=== PATIENT | female | born 1945 | race Caucasian/White ===

== ENCOUNTER 2020-12-26 12:24 | Emergency (ER) | payer MEDICARE, OTHER ==
[2020-12-26] MEDS ORDERED: Sodium Chloride 0.9% 10 ML Syringe FLUSH PRN (13:05)
--- NOTE | 2020-12-26 13:40 | CR ---
Chest: Portable view of the chest was obtained. Comparison: No prior chest imaging is available. Heart size is normal. Tortuous thoracic aorta is seen. Several slight areas of parenchymal density are seen raising the possibility of mild COVID pneumonia. Bony structures show slight scoliosis within the spine. Impression: 1. Slight densities within the chest raising the possibility of mild COVID pneumonia. Please correlate. 2. Other findings believed to be incidental as noted above. Diagnostic code #3
--- NOTE | 2020-12-26 13:45 | CT ---
Head CT Technique: Multiple axial sections through the brain were obtained. Intravenous contrast was not utilized. Reconstructed coronal and sagittal images were obtained. Comparison: No prior intracranial imaging is available. Findings: Ventricles along the basal cisterns and sulci over the convexities are mildly prominent. No abnormal parenchymal densities are seen. No evidence of intracranial hemorrhage is seen. No midline shift or mass-effect is seen. Mild mucosal thickening is seen within the sphenoid, maxillary and ethmoid sinuses. Mastoid sinuses show nothing acute. No acute calvarial finding is seen. Impression: 1. Sinus disease which could be chronic or acute. Please correlate with the patient's symptoms. 2. Mild generalized atrophy is seen. 3. No acute intracranial abnormality is seen. Diagnostic code #3
--- NOTE | 2020-12-26 13:53 | EDM.PDOC ---
ED HPI GENERAL MEDICAL PROBLEM - General Chief Complaint: Neuro Symptoms/Deficits Stated Complaint: POSS MINI STROKES AND COVID POSS Time Seen by Provider: 12/26/20 12:39 Source of Information: Reports: Patient History Limitations: Reports: No Limitations - History of Present Illness INITIAL COMMENTS - FREE TEXT/NARRATIVE: 75-year-old female presents to the emergency department accompanied by her sister. Per the patient's sister report she states that patient was not feeling well for the past couple of days and was tested for Covid however has not received results yet. States that she seemed extremely confused approximately 2 days ago and was not aware of the date. Confusion seems to have resolved today. She is awake alert and oriented x3. However she states she does not recall the past 2 days. She has had a cough and has not had much of an appetite. She denies any recent fever or chills. Denies nausea, vomiting or diarrhea. Does have a history of NV however it has not had any stents placed and she states she has history of CVA in the past. - Related Data Allergies Allergy/AdvReac Type Severity Reaction Status Date / Time No Known Allergies Allergy Verified 12/26/20 12:47 Home Meds: Home Meds Aspirin [Aspirin EC] 81 mg PO DAILY 12/26/20 [History] Hydrochlorothiazide/Lisinopril [Lisinopril/HCTZ 10-12.5 MG] 1 tab PO DAILY 12/26/20 [History] atorvaSTATin [Lipitor] 20 mg PO DAILY 12/26/20 [History] Past Medical History Cardiovascular History: Reports: High Cholesterol, Hypertension Psychiatric History: Reports: None Oncologic (Cancer) History: Reports: Breast Other Oncologic History: breast cancer in 2013 - Past Surgical History Oncologic Surgical History: Reports: Mastectomy Social & Family History - Tobacco Use Tobacco Use Status *Q: Never Tobacco User Second Hand Smoke Exposure: No - Recreational Drug Use Recreational Drug Use: No ED ROS GENERAL - Review of Systems Review Of Systems: Comprehensive ROS is negative, except as noted in HPI. ED EXAM, GENERAL - Physical Exam Exam: See Below Exam Limited By: No Limitations General Appearance: Alert, WD/WN, No Apparent Distress Ears: Normal External Exam, Hearing Grossly Normal Nose: Normal Inspection Throat/Mouth: Normal Inspection, Normal Lips, Normal Voice, No Airway Compromise Head: Atraumatic Neck: Normal Inspection, Supple Respiratory/Chest: No Respiratory Distress, No Accessory Muscle Use, Chest Non- Tender, Crackles (L) Cardiovascular: Normal Peripheral Pulses, Regular Rate, Rhythm, No Edema, No Murmur Peripheral Pulses: 2+: Radial (L), Radial (R), Dorsalis Pedis (L), Dorsalis Pedis (R) GI/Abdominal: Normal Bowel Sounds, Soft, Non-Tender, No Distention (Female) Exam: Deferred Rectal (Female) Exam: Deferred Back Exam: Normal Inspection Extremities: Normal Inspection Neurological: Alert, Oriented, CN II-XII Intact, Normal Cognition Psychiatric: Normal Affect, Normal Mood Skin Exam: Warm, Dry, Intact, Normal Color, No Rash Lymphatic: No Adenopathy #1 Interpretation EKG Date: 12/26/20 Time: 13:41 Rhythm: NSR Rate (Beats/Min): 72 [place]: Normal P-Wave: Present QRS: Normal ST-T: Normal QT: Normal EKG Interpretation Comments: Per Dr. Redd interpretation: Sinus rhythm at 72 bpm; left atrial enlargement; low voltage, extremity and precordial leads Course - Vital Signs Text/Narrative:: As stated above, patient presents with 3-day history of increased confusion, shortness of breath and cough. Physical exam is essentially unremarkable however patient does have some fine crackles noted bilaterally. Full neuro exam is unremarkable. She is hemodynamically stable with O2 saturations in the upper 90s. She is afebrile. Will obtain a head CT without contrast to rule out CVA, chest x-ray, lab studies to include a CBC, CMP, magnesium, D-dimer and a C-reactive protein. Also obtain a Covid swab on the patient. Last Recorded V/S: Last Vital Signs Temp 97.0 F 12/26/20 12:42 Pulse 71 12/26/20 16:00 Resp 22 H 12/26/20 16:00 BP 108/64 12/26/20 16:00 Pulse Ox 94 L 12/26/20 16:00 - Orders/Labs/Meds Orders: Active Orders 24 hr Category Date Time Status Vital Signs [RC] Q15M Care 12/26/20 14:37 Active UA RFX SELVIN AND CULT IF INDIC [URIN] Stat Lab 12/26/20 13:06 Ordered Bamlanivimab 700 mg Med 12/26/20 15:30 Active Etesevimab [Etesevimab (EUA)] 1,400 mg Sodium Chloride 0.9% [Normal Saline] 100 ml IV ONETIME EPINEPHrine [Adrenalin] Med 12/26/20 14:36 Active 0.3 mg IM ASDIRECTED PRN Famotidine [Pepcid] Med 12/26/20 14:36 Active 20 mg IVPUSH ASDIRECTED PRN Sodium Chloride 0.9% [Saline Flush] Med 12/26/20 13:05 Active 10 ml FLUSH ASDIRECTED PRN Sodium Chloride 0.9% [Saline Flush] Med 12/26/20 14:45 Active 30 ml FLUSH ASDIRECTED diphenhydrAMINE [Benadryl] Med 12/26/20 14:36 Active 50 mg IVPUSH ASDIRECTED PRN methylPREDNISolone Sod Succ [Solu-MEDROL] Med 12/26/20 14:36 Active 125 mg IVPUSH ASDIRECTED PRN Saline Lock Insert [OM.PC] Stat Oth 12/26/20 13:05 Ordered Medication Orders Diphenhydramine HCl (Diphenhydramine 50 Mg/Ml Sdv) 50 mg IVPUSH ASDIRECTED PRN PRN Reason: hypersensitivity reaction Epinephrine HCl (Epinephrine 1 Mg/Ml Sdv) 0.3 mg IM ASDIRECTED PRN PRN Reason: hypersensitivity reaction Famotidine (Famotidine 20 Mg/2 Ml Sdv) 20 mg IVPUSH ASDIRECTED PRN PRN Reason: hypersensitivity reaction Bamlanivimab 700 mg/Etesevimab 1,400 mg/ Sodium Chloride 160 mls @ 310 mls/hr IV ONETIME ARTIE Last Admin: 12/26/20 15:30 Dose: 310 mls/hr Documented by: FOSTCHR Methylprednisolone Sodium Succinate (Methylprednisolone Sodium Succinate 125 Mg/2 Ml Sdv) 125 mg IVPUSH ASDIRECTED PRN PRN Reason: hypersensitivity reaction Sodium Chloride (Sodium Chloride 0.9% 10 Ml Syringe) 10 ml FLUSH ASDIRECTED PRN PRN Reason: Keep Vein Open Last Admin: 12/26/20 13:38 Dose: 10 ml Documented by: FOSTCHR Sodium Chloride (Sodium Chloride 0.9% 10 Ml Syringe) 30 ml FLUSH ASDIRECTED ARTIE Labs: Laboratory Tests 12/26/20 12/26/20 12/26/20 Range/Units 12:51 13:16 13:16 WBC 3.58 L (3.98-10.04) K/mm3 RBC 4.49 (3.98-5.22) M/mm3 Hgb 13.8 (11.2-15.7) gm/dl Hct 39.3 (34.1-44.9) % MCV 87.5 (79.4-94.8) fl MCH 30.7 (25.6-32.2) pg MCHC 35.1 (32.2-35.5) g/dl RDW Std Deviation 40.3 (36.4-46.3) fL Plt Count 173 L (182-369) K/mm3 MPV 9.8 (9.4-12.3) fl Neut % (Auto) 59.2 (34.0-71.1) % Lymph % (Auto) 31.3 (19.3-51.7) % [place] % (Auto) 9.2 (4.7-12.5) % Eos % (Auto) 0 L (0.7-5.8) Baso % (Auto) 0.3 (0.1-1.2) % Neut # (Auto) 2.12 (1.56-6.13) K/mm3 Lymph # (Auto) 1.12 L (1.18-3.74) K/mm3 [place] # (Auto) 0.33 (0.24-0.36) K/mm3 Eos # (Auto) 0.00 L (0.04-0.36) K/mm3 Baso # (Auto) 0.01 (0.01-0.08) K/mm3 Manual Slide Review Abnormal smear D-Dimer, Quantitative 1.22 H (0.19-0.50) mg/L Sodium (136-145) mEq/L Potassium (3.5-5.1) mEq/L Chloride (98-107) mEq/L Carbon Dioxide (21-32) mEq/L Anion Gap (5-15) BUN (7-18) mg/dL Creatinine (0.55-1.02) mg/dL Est Cr Clr Drug Dosing mL/min Estimated GFR (MDRD) (>60) mL/min BUN/Creatinine Ratio (14-18) Glucose (70-99) mg/dL Calcium (8.5-10.1) mg/dL Magnesium (1.8-2.4) mg/dL Total Bilirubin (0.2-1.0) mg/dL AST (15-37) U/L ALT (14-59) U/L Alkaline Phosphatase (46-116) U/L Troponin I (0.00-0.056) ng/mL C-Reactive Protein (<1.0) mg/dL NT-Pro-B Natriuret Pep (0-450) pg/mL Total Protein (6.4-8.2) g/dl Albumin (3.4-5.0) g/dl Globulin gm/dL Albumin/Globulin Ratio (1-2) SARS-CoV-2 RNA (JUNIOR) Positive H (NEGATIVE) 12/26/20 12/26/20 Range/Units 13:16 13:16 WBC (3.98-10.04) K/mm3 RBC (3.98-5.22) M/mm3 Hgb (11.2-15.7) gm/dl Hct (34.1-44.9) % MCV (79.4-94.8) fl MCH (25.6-32.2) pg MCHC (32.2-35.5) g/dl RDW Std Deviation (36.4-46.3) fL Plt Count (182-369) K/mm3 MPV (9.4-12.3) fl Neut % (Auto) (34.0-71.1) % Lymph % (Auto) (19.3-51.7) % [place] % (Auto) (4.7-12.5) % Eos % (Auto) (0.7-5.8) Baso % (Auto) (0.1-1.2) % Neut # (Auto) (1.56-6.13) K/mm3 Lymph # (Auto) (1.18-3.74) K/mm3 [place] # (Auto) (0.24-0.36) K/mm3 Eos # (Auto) (0.04-0.36) K/mm3 Baso # (Auto) (0.01-0.08) K/mm3 Manual Slide Review D-Dimer, Quantitative (0.19-0.50) mg/L Sodium 129 L (136-145) mEq/L Potassium 3.7 (3.5-5.1) mEq/L Chloride 94 L (98-107) mEq/L Carbon Dioxide 25 (21-32) mEq/L Anion Gap 13.7 (5-15) BUN 27 H (7-18) mg/dL Creatinine 1.5 H (0.55-1.02) mg/dL Est Cr Clr Drug Dosing 24.84 mL/min Estimated GFR (MDRD) 34 (>60) mL/min BUN/Creatinine Ratio 18.0 (14-18) Glucose 124 H (70-99) mg/dL Calcium 8.2 L (8.5-10.1) mg/dL Magnesium 2.4 (1.8-2.4) mg/dL Total Bilirubin 0.7 (0.2-1.0) mg/dL AST 69 H (15-37) U/L ALT 48 (14-59) U/L Alkaline Phosphatase 27 L (46-116) U/L Troponin I < 0.017 (0.00-0.056) ng/mL C-Reactive Protein 0.9 (<1.0) mg/dL NT-Pro-B Natriuret Pep 83 (0-450) pg/mL Total Protein 6.8 (6.4-8.2) g/dl Albumin 3.2 L (3.4-5.0) g/dl Globulin 3.6 gm/dL Albumin/Globulin Ratio 0.9 L (1-2) SARS-CoV-2 RNA (JUNIOR) (NEGATIVE) Meds: Medications Generic Name Dose Route Start Last Admin Trade Name Freq PRN Reason Stop Dose Admin Diphenhydramine HCl 50 mg 12/26/20 14:36 Diphenhydramine 50 Mg/Ml Sdv IVPUSH ASDIRECTED PRN hypersensitivity reaction Epinephrine HCl 0.3 mg 12/26/20 14:36 Epinephrine 1 Mg/Ml Sdv IM ASDIRECTED PRN hypersensitivity reaction Famotidine 20 mg 12/26/20 14:36 Famotidine 20 Mg/2 Ml Sdv IVPUSH ASDIRECTED PRN hypersensitivity reaction Bamlanivimab 700 mg/ 160 mls @ 310 mls/hr 12/26/20 15:30 12/26/20 15:30 Etesevimab 1,400 mg/ Sodium IV 310 mls/hr Chloride ONETIME ARTIE Administration Methylprednisolone Sodium Succinate 125 mg 12/26/20 14:36 Methylprednisolone Sodium Succinate 125 Mg/2 Ml Sdv IVPUSH ASDIRECTED PRN hypersensitivity reaction Sodium Chloride 10 ml 12/26/20 13:05 12/26/20 13:38 Sodium Chloride 0.9% 10 Ml Syringe FLUSH 10 ml ASDIRECTED PRN Administration Keep Vein Open Sodium Chloride 30 ml 12/26/20 14:45 Sodium Chloride 0.9% 10 Ml Syringe FLUSH ASDIRECTED ARTIE Discontinued Medications Generic Name Dose Route Start Last Admin Trade Name Freq PRN Reason Stop Dose Admin Sodium Chloride 1,000 mls @ 999 mls/hr 12/26/20 14:36 12/26/20 15:05 Normal Saline IV 12/26/20 15:36 999 mls/hr ONETIME ONE Administration - Re-Assessments/Exams Free Text/Narrative Re-Assessment/Exam: 12/26/20 13:48 Radiologist impression portable view of the chest: Heart size is normal. Tortuous thoracic aorta is seen. Several slight areas of parenchymal density are seen raising the possibility of mild Covid pneumonia. Bony structures show slight scoliosis within the spine. Impression: 1. Densities within the chest raising the possibility of mild Covid pneumonia. Please correlate. 2. Other findings believed to be incidental as noted above. Radiologist impression CT of the head without contrast: Ventricles along with basal cisterns and sulci over the convexities are mildly prominent. No abnormal parenchymal densities are seen. No evidence of intracranial hemorrhage is seen. No midline shift or mass-effect is seen. Mild mucosal thickening is seen within the sphenoid, maxillary and ethmoid sinuses. Mastoid sinuses show nothing acute. No acute calvarial finding is seen. Impression: 1. Sinus disease which could be chronic or acute. Please correlate with the patient's symptoms. 2. Mild generalized atrophy is seen. 3. No acute intracranial abnormality is seen. 12/26/20 14:35 Hematology is essentially unremarkable D-dimer 1.22, chemistry reveals a sodium of 129, potassium 3.7, chloride 194, BUN 27, creatinine 1.5, GFR 34, glucose 124, magnesium 2.4, troponin less than 0.017, C-reactive protein 0.9, Patient is Covid positive Although D-dimer is elevated she is positive for Covid so suspect this is likely the cause of the elevation. I do not feel it is warranted at this time to do a CT of her lungs. We will give the patient 1000 mL of normal saline due to the fact that her sodium is low likely due to losses from decreased oral intake. I spoke with the patient to provide information about Bamlanivimad for herself. I offered her the fax sheet for patients and caregivers for Bamlanivimad to read and review. I stated the therapy has been approved by an emergency use authorization process and has not fully been FDA reviewed or approved. I shared the potential risks from the therapy including risks/adverse reactions. I discussed there are other potential treatment options that are currently not FDA approved to treat COVID-19. Offered opportunity ask questions and all questions were answered. Patient voiced understanding and agreed to proceed with treatment for herself. 12/26/20 18:02 Patient did receive antibody infusion. Tolerated very well and was monitored for 1 hour after infusion. She will be discharged home and will need to isolate for 10 days from the onset of her symptoms. She will need to follow-up with her primary care provider once she is off isolation precautions. Departure - Departure Time of Disposition: 18:02 Disposition: Home, Self-Care 01 Condition: Good Clinical Impression: COVID-19 - Discharge Information Referrals: Mason Simpson MD [Primary Care Provider] - Forms: ED Department Discharge Additional Instructions: You were seen in the emergency department today and evaluated and found to have Covid. Lab studies were completed and you did receive monoclonal antibodies. Again, this was given to reduce the severity and length of time you have the symptoms of Covid. You will need to isolate yourself for 10 days total from the first day of your onset of symptoms. Recommend drinking electrolyte replacements such as Gatorade or Powerade. Eat small frequent meals. Take Tylenol 650 mg every 4 hours as needed for pain or fever. Follow-up with your primary care provider as soon as your 10 days of isolation has completed. Sepsis Event Note (ED) - Evaluation Sepsis Screening Result: No Definite Risk - Focused Exam Vital Signs: Vital Signs Temp Pulse Resp BP Pulse Ox 12/26/20 16:00 71 22 H 108/64 94 L 12/26/20 12:42 97.0 F 75 16 124/61 96 - My Orders Last 24 Hours: My Active Orders 12/26/20 13:05 Sodium Chloride 0.9% [Saline Flush] 10 ml FLUSH ASDIRECTED PRN Saline Lock Insert [OM.PC] Stat 12/26/20 13:06 UA RFX SELVIN AND CULT IF INDIC [URIN] Stat 12/26/20 14:36 EPINEPHrine [Adrenalin] 0.3 mg IM ASDIRECTED PRN Famotidine [Pepcid] 20 mg IVPUSH ASDIRECTED PRN diphenhydrAMINE [Benadryl] 50 mg IVPUSH ASDIRECTED PRN methylPREDNISolone Sod Succ [Solu-MEDROL] 125 mg IVPUSH ASDIRECTED PRN 12/26/20 14:37 Vital Signs [RC] Q15M 12/26/20 14:45 Sodium Chloride 0.9% [Saline Flush] 30 ml FLUSH ASDIRECTED 12/26/20 15:30 Bamlanivimab 700 mg Etesevimab [Etesevimab (EUA)] 1,400 mg Sodium Chloride 0.9% [Normal Saline] 100 ml IV ONETIME - Assessment/Plan Last 24 Hours: My Active Orders 12/26/20 13:05 Sodium Chloride 0.9% [Saline Flush] 10 ml FLUSH ASDIRECTED PRN Saline Lock Insert [OM.PC] Stat 12/26/20 13:06 UA RFX SELVIN AND CULT IF INDIC [URIN] Stat 12/26/20 14:36 EPINEPHrine [Adrenalin] 0.3 mg IM ASDIRECTED PRN Famotidine [Pepcid] 20 mg IVPUSH ASDIRECTED PRN diphenhydrAMINE [Benadryl] 50 mg IVPUSH ASDIRECTED PRN methylPREDNISolone Sod Succ [Solu-MEDROL] 125 mg IVPUSH ASDIRECTED PRN 12/26/20 14:37 Vital Signs [RC] Q15M 12/26/20 14:45 Sodium Chloride 0.9% [Saline Flush] 30 ml FLUSH ASDIRECTED 12/26/20 15:30 Bamlanivimab 700 mg Etesevimab [Etesevimab (EUA)] 1,400 mg Sodium Chloride 0.9% [Normal Saline] 100 ml IV ONETIME
[2020-12-26] MEDS ORDERED: diphenhydrAMINE 50 MG/ML SDV IVPUSH PRN (14:36)
[2020-12-26] MEDS ORDERED: Sodium Chloride 0.9% 1,000 ML IV ONE (14:36)
[2020-12-26] MEDS ORDERED: methylPREDNISolone Sodium Succinate 125 MG/2 ML SDV IVPUSH PRN (14:36)
[2020-12-26] MEDS ORDERED: EPINEPHrine 1 MG/ML SDV IM PRN (14:36)
[2020-12-26] MEDS ORDERED: Famotidine 20 MG/2 ML SDV IVPUSH PRN (14:36)
[2020-12-26] MEDS ORDERED: Bamlanivimab 700 MG, ETESEVIMAB 1,400 MG in Sodium Chloride 0.9% 100 ML IV ONE (14:36)
[2020-12-26] MEDS ORDERED: Sodium Chloride 0.9% 10 ML Syringe FLUSH SCH (14:45)
[2020-12-26] MEDS ORDERED: Bamlanivimab 700 MG, ETESEVIMAB 1,400 MG in Sodium Chloride 0.9% 100 ML IV SCH (15:30)
== END 2020-12-26 18:37 | disposition home or self-care (01) ==
LOC: JD.ED 12:24
DX: U07.1 COVID-19 (principal); R79.1 Abnormal coagulation profile; E78.00 Pure hypercholesterolemia, unspecified; I10 Essential (primary) hypertension; Z86.73 Personal history of transient ischemic attack (TIA), and cerebral infarction without residual deficits; Z79.82 Long term (current) use of aspirin; Z79.899 Other long term (current) drug therapy; R06.02 Shortness of breath
CPT/HCPCS: 36415; 70450; 70450-26; 71045; 71045-26; 80053; 83735; 83880; 84484; 85025; 85379; 86140; 93005; 93010; 99284-25; 99285; J7030; M0245; Q0245; U0002

== ENCOUNTER 2022-04-16 14:15 | Inpatient (IN) | payer MEDICARE, OTHER ==
[2022-04-16 15:17] LABS: CORONAVIRUS COVID-19 NAA NEGATIVE (NEGATIVE)
[2022-04-16] MEDS ORDERED: Furosemide 40 MG Tab PO ONE (16:46)
[2022-04-16] MEDS ORDERED: Potassium Chloride 20 MEQ Tab.ER PO ONE (16:46)
[2022-04-16] MEDS ORDERED: Sodium Chloride 0.9% 1,000 ML IV ONE (17:21)
[2022-04-16] MEDS: Iopamidol 755 MG/ML 50 ML Bottle IVPUSH ONE ×2 (17:44→17:45)
[2022-04-16] MEDS ORDERED: Sodium Chloride 0.9% 100 ML IV SCH (17:45)
[2022-04-16] MEDS ORDERED: Heparin Sodium 5,000 Units/ML Vial IVPUSH ONE (18:05)
[2022-04-16] MEDS: Heparin Sodium/D5W 25,000 UNITS/500 ML BAG IV SCH (18:44)
[2022-04-16] MEDS ORDERED: Acetaminophen 325 MG Tab PO PRN (20:38)
[2022-04-16] MEDS ORDERED: oxyCODONE 5 MG Tab PO PRN (20:38)
[2022-04-16] MEDS ORDERED: Ondansetron 4 MG/2 ML SDV IV PRN (20:38)
[2022-04-17] MEDS: atorvaSTATin 20 MG Tab PO SCH (09:52)
[2022-04-17] MEDS ORDERED: FLU Vacc QS2022(65UP)/MF59C/PF 60 MCG/0.5 ML Syringe IM ONE (14:30)
[2022-04-17] MEDS: SUPER COLON CLEANSE PO SCH (20:20)
[2022-04-17] MEDS: Heparin Sodium/D5W 25,000 UNITS/500 ML BAG IV SCH (20:21)
[2022-04-18] MEDS ORDERED: Apixaban 5 MG Tab PO SCH (09:00)
[2022-04-18] MEDS: SUPER COLON CLEANSE PO SCH ×2 (09:21→09:23)
[2022-04-18] MEDS: atorvaSTATin 20 MG Tab PO SCH (09:21)
== END 2022-04-18 13:45 | disposition home or self-care (01) | DRG 176 ==
LOC: JD.ED 14:15 → JD.MS 20:34
PROVIDERS: ADMIT Internal Medicine; ATTEND Internal Medicine
DX: I26.99 Other pulmonary embolism without acute cor pulmonale (principal); Z20.822 Contact with and (suspected) exposure to COVID-19; E78.5 Hyperlipidemia, unspecified; I10 Essential (primary) hypertension; E78.00 Pure hypercholesterolemia, unspecified; Z79.82 Long term (current) use of aspirin; Z85.3 Personal history of malignant neoplasm of breast; Z79.899 Other long term (current) drug therapy; Z86.73 Personal history of transient ischemic attack (TIA), and cerebral infarction without residual deficits; Z86.16 Personal history of COVID-19; Z23 Encounter for immunization
CPT/HCPCS: 0241U; 36415; 71045; 71045-26; 71275; 71275-26; 80048; 80053; 83880; 84484; 85025; 85027; 85379; 85730; 86140; 90694; 93005; 93010; 93307; 99285; A9270-GY; J1644; J3490; J7030; Q9967

== ENCOUNTER 2023-12-29 18:34 | Emergency (ER) | payer MEDICARE, OTHER ==
[2023-12-29] MEDS ORDERED: Sodium Chloride 0.9% 10 ML Syringe FLUSH PRN (19:14)
[2023-12-29 19:21] LABS: BASOPHILS PERCENT AUTO 0.5 % (0.0-1.0); EOSINOPHILS ABSOLUTE AUTO 0.2 K/mm3 (0.0-0.4); EOSINOPHILS PERCENT AUTO 2.8 % (0.0-6.0); HEMATOCRIT 38.5 % (37.0-47.0); HEMOGLOBIN 13.6 gm/dl (12.0-16.0); IMMATURE GRAN ABSOLUTE AUTO 0.02 K/mm3 (0.00-0.05); IMMATURE GRAN PERCENT AUTO 0.3 % (0.0-0.4); LYMPHOCYTES ABSOLUTE AUTO 2.6 K/mm3 (1.0-4.8); LYMPHOCYTES PERCENT AUTO 33.1 % (24.0-44.0); MEAN CORPUSCULAR HEMOGLOBIN 31.1 pg (28.0-32.0); MEAN CORPUSCULAR HGB CONC 35.3 g/dl (32.0-36.0); MEAN CORPUSCULAR VOLUME 88.1 fl (83.0-99.0); MEAN PLATELET VOLUME 9.8 fl (9.4-12.3); MONOCYTES ABSOLUTE AUTO 0.7 K/mm3 (0.0-0.8); MONOCYTES PERCENT AUTO 8.3 % (0.0-8.0); NEUTROPHILS ABSOLUTE AUTO 4.3 K/mm3 (1.8-7.7); PLATELET COUNT,PLT 265 K/mm3 (150-400); RED BLOOD CELL COUNT 4.37 M/mm3 (4.10-5.30); WHITE BLOOD CELL COUNT,WBC 7.83 K/mm3 (3.9-11.3)
[2023-12-29 19:38] LABS: A/G RATIO 0.9 (1-2); ALANINE AMINOTRANSFERASE,ALT 31 U/L (14-59); ALBUMIN 3.3 g/dl (3.4-5.0); ALKALINE PHOSPHATASE 44 U/L (46-116); ANION GAP 16.1 (5-15); ASPARTATE AMNIOTRANSFERASE,AST 18 U/L (15-37); BILIRUBIN TOTAL 0.8 mg/dL (0.2-1.0); BLOOD UREA NITROGEN,BUN 18 mg/dL (7-18); CARBON DIOXIDE,CO2 24 mEq/L (21-32); CHLORIDE,CL 103 mEq/L (98-107); CREATININE 1.2 mg/dL (0.55-1.02); EST CRCL DRUG DOSING (CG) 29.57 mL/min; ESTIMATED GFR 46 mL/min (>60); GLUCOSE RANDOM 168 mg/dL (70-99); POTASSIUM,K 3.1 mEq/L (3.5-5.1); PROTEIN TOTAL,TP 6.8 g/dl (6.4-8.2); SODIUM,NA 140 mEq/L (136-145)
[2023-12-29 19:45] LABS: INR 1.61; PROTHROMBIN TIME 16.5 SECONDS (9.7-12.0)
[2023-12-29] MEDS: fentaNYL 100 MCG/2 ML SDV IVPUSH ONE ×2 (19:51→21:30)
[2023-12-29 19:52] LABS: TROPONIN I HIGH SENSITIVITY < 4 pg/mL (<=51)
[2023-12-29 20:32] LABS: APPEARANCE,URINE CLOUDY (Clear); BILIRUBIN,URINE NEGATIVE (Negative); COLOR,URINE YELLOW (Yellow); GLUCOSE,URINE NEGATIVE (Negative); KETONES,URINE NEGATIVE (Negative); LEUKOCYTE ESTERASE,URINE 2+ (Negative); NITRITE,URINE NEGATIVE (Negative); OCCULT BLOOD,URINE TRACE-LYSED (Negative); PH,URINE 5.5 (5.0-8.0); PROTEIN,URINE TRACE (Negative); UROBILINOGEN,URINE 0.2 (0.2-1.0)
[2023-12-29 20:39] LABS: BACTERIA,URINE MODERATE /hpf (FEW); WBC,URINE 40-50 /hpf (0-5)
[2023-12-29 20:40] LABS: MUCUS,URINE MODERATE /hpf (FEW)
[2023-12-29] MEDS: cefTRIAXone 1 GM in Sodium Chloride 0.9% 50 ML IV ONE (21:37)
[2023-12-29] MEDS: Morphine 4 MG/ML Syringe IVPUSH ONE (22:46)
[2023-12-29] MEDS: Potassium Chloride 20 MEQ Tab.ER PO ONE (22:49)
[2023-12-29] MEDS: Sodium Chloride 0.9% 500 ML IV ONE (22:56)
[2023-12-29] MEDS: Ondansetron 4 MG/2 ML SDV IVPUSH ONE (22:57)
[2023-12-29] MEDS: Sodium Chloride 0.9% 100 ML IV SCH (23:41)
[2023-12-29] MEDS: Iopamidol 755 Mg/ML 100 ML Bottle IVPUSH ONE (23:41)
== END 2023-12-30 02:28 | disposition home or self-care (01) ==
LOC: JD.ED 18:34
DX: R07.9 Chest pain, unspecified (principal); N39.0 Urinary tract infection, site not specified; Z79.01 Long term (current) use of anticoagulants; I10 Essential (primary) hypertension; Z79.899 Other long term (current) drug therapy; Z86.16 Personal history of COVID-19
CPT/HCPCS: 36415; 71045; 71275; 74175; 76705; 80053; 81001; 83690; 84484; 85025; 85610; 87086; 87088; 87186; 93005; 96361; 96365; 96375; 96376; 99285; A9270; J0696; J2270; J2405; J3010; J3490; J7030; Q9967; 93010; 99284

== ENCOUNTER 2024-02-12 10:45 | Day surgery (SDC) | payer MEDICARE, OTHER ==
[~2024-02-12 10:45] MED LIST: Dexamethasone 4 MG/ML 5 ML MDV ONE; HYDROmorphone 0.5 MG/0.5 ML Syringe IVPUSH PRN; Lidocaine 1% 5 ML VIAL ONE; Midazolam 1 MG/ML 2 ML SDV ONE; Ondansetron 4 MG/2 ML SDV IVPUSH PRN; Ondansetron 4 MG/2 ML SDV ONE; Propofol 200 MG/20 ML SDV ONE; Rocuronium 50 MG/5 ML Vial ONE; Sodium Chloride 0.9% 10 ML Syringe FLUSH PRN; Sodium Chloride 0.9% 10 ML Syringe FLUSH SCH; ceFAZolin 2 GM Vial ONE; fentaNYL 100 MCG/2 ML SDV ONE
[2024-02-12] MEDS: Lactated Ringers 1,000 ML IV SCH (11:15)
[2024-02-12] MEDS: EPINEPHrine 1 MG/ML SDV ONE (11:34)
[2024-02-12] MEDS: Bupivacaine 0.5% 30 ML SDV ONE (11:34)
[2024-02-12] MEDS ORDERED: Heparin Sodium 5,000 Units/ML Vial SUBCUT ONE (11:46)
[2024-02-12] MEDS ORDERED: Sodium Chloride 0.9% 100 ML ONE (11:57)
[2024-02-12] MEDS ORDERED: Phenylephrine 1% 10 MG/ML SDV ONE (11:57)
[2024-02-12] MEDS ORDERED: Sugammadex Sodium 200 MG/2 ML VIAL IV ONE (12:29)
[2024-02-12] MEDS: traMADol 50 MG Tab PO PRN (15:15)
[2024-02-12] MEDS: fentaNYL 100 MCG/2 ML SDV IVPUSH PRN (15:15)
== END 2024-02-12 16:55 | disposition home or self-care (01) ==
LOC: JD.SDS 10:45
PROVIDERS: ATTEND Surgery
DX: K80.10 Calculus of gallbladder with chronic cholecystitis without obstruction (principal); I10 Essential (primary) hypertension; E78.5 Hyperlipidemia, unspecified; Z79.899 Other long term (current) drug therapy
CPT/HCPCS: 47562; A9270; J0171; J0665; J0690; J1100; J2250; J2371; J2405; J2704; J3010; J7120; 00790; 99100; J3490